=== PATIENT | male | born 1955 | race African-American/Black ===

== ENCOUNTER 2018-01-30 08:43 | Inpatient (IN) | payer OTHER ==
[~2018-01-30] VITALS: Ht 175.3 cm; Wt 99.5 kg
[2018-01-30 09:18] LABS: BASOPHILS % (AUTO) 0.3 % (0-1); EOSINOPHILS # (AUTO) 0.1 X10'3 (0-0.9); EOSINOPHILS % (AUTO) 0.4 % (0-6); HEMATOCRIT 37.2 % (42.0-52.0); HEMOGLOBIN 12.4 g/dl (14.0-17.9); LYMPHOCYTES # (AUTO) 1.9 X10'3 (1.1-4.8); LYMPHOCYTES % (AUTO) 12.6 % (21-51); MEAN CORPUSCULAR HEMOGLOBIN 29.6 PG (27.0-31.0); MEAN CORPUSCULAR HGB CONC 33.4 % (33.0-36.5); MEAN CORPUSCULAR VOLUME 88.6 FL (78-98); MEAN PLATELET VOLUME 7.1 FL (7.4-10.4); MONOCYTES # (AUTO) 0.8 X10'3 (0-0.9); MONOCYTES % (AUTO) 5.6 % (2-12); NEUTROPHILS % (AUTO) 81.1 % (42-75); PLATELET COUNT 224 X10'3 (140-440); RED CELL DISTRIBUTION WIDTH 13.1 % (11.5-14.5); WHITE BLOOD COUNT 14.8 X10'3 (4.5-11.0)
[2018-01-30] MEDS ORDERED: ondansetron/PF 4mg/2ml inj IV ONE (09:20)
[2018-01-30 09:35] LABS: ALANINE AMINOTRANSFERASE 38 U/L (12-78); ALBUMIN 3.5 G/DL (3.4-5.0); ALBUMIN/GLOBULIN RATIO 0.8 (1.1-1.5); ALKALINE PHOSPHATASE 81 IU/L (46-116); ANION GAP 8 (8-16); ASPARTATE AMINO TRANSFERASE 25 U/L (10-37); BILIRUBIN,TOTAL 0.5 MG/DL (0.1-1.0); BLOOD UREA NITROGEN 11 MG/DL (7-18); BUN/CREATININE RATIO 6.3 (5.4-32.0); CALCIUM 8.9 MG/DL (8.5-10.1); CHLORIDE 104 MMOL/L (99-107); CREATININE 1.76 MG/DL (0.60-1.10); GLUCOSE 181 MG/DL (70-104); POTASSIUM 3.8 MMOL/L (3.5-5.1); SODIUM 137 MMOL/L (135-145); TOTAL CARBON DIOXIDE 24.7 MMOL/L (24-32); TOTAL PROTEIN 7.7 G/DL (6.4-8.2); eGFR 40 ML/MIN
[2018-01-30] MEDS ORDERED: aspirin 325mg tablet PO ONE (09:40)
[2018-01-30 09:46] LABS: D-DIMER 15.44 MG/L FEU (0-0.50); PARTIAL THROMBOPLASTIN TIME 23 SECONDS (22-32); PROTHROMBIN TIME 10.7 SECONDS (9.0-12.0)
[2018-01-30] MEDS ORDERED: sodium bicarbonate (8.4%) 1 mEq/ml syringe IV ONE ×2 (09:55)
[2018-01-30] MEDS ORDERED: normal saline 1000ML IV soln IVB ONE (09:55)
[2018-01-30] MEDS ORDERED: iohexol 350MG/ML 100ml bottle IV ONE (10:29)
[2018-01-30] MEDS ORDERED: enoxaparin 100mg/ml syringe SQ ONE (10:40)
[2018-01-30 12:04] LABS: CLARITY,URINE Clear (Clear); COLOR,URINE Yellow (Yellow); GLUCOSE, URINE 100 mg/dl (Neg); KETONES,URINE Negative (Neg); LEUKOCYTE ESTERASE ,URINE Negative (Neg); NITRITES, URINE Negative (Neg); OCCULT BLOOD,URINE Negative (Neg); PROTEIN,URINE Negative (Neg); UROBILINOGEN,URINE 0.2 E.U/dL (0.2-1.0)
[2018-01-30 12:11] LABS: HEMATOCRIT 36.8 % (42.0-52.0); HEMOGLOBIN 12.3 g/dl (14.0-17.9); MEAN CORPUSCULAR HEMOGLOBIN 29.7 PG (27.0-31.0); MEAN CORPUSCULAR HGB CONC 33.5 % (33.0-36.5); MEAN CORPUSCULAR VOLUME 88.8 FL (78-98); MEAN PLATELET VOLUME 7.6 FL (7.4-10.4); PLATELET COUNT 197 X10'3 (140-440); RED BLOOD COUNT 4.14 X10'6 (4.70-6.10); RED CELL DISTRIBUTION WIDTH 13.3 % (11.5-14.5); WHITE BLOOD COUNT 14.5 X10'3 (4.5-11.0)
[2018-01-30 12:19] LABS: UA COLLECTION TYPE CLN CATCH MIDSTREAM
[2018-01-30 12:38] LABS: BLOOD UREA NITROGEN 10 MG/DL (7-18); CREATININE 1.47 MG/DL (0.60-1.10); eGFR 49 ML/MIN
[2018-01-30 13:00] LABS: ABG BASE EXCESS -1.4 mmol/L (-2.0-3.0); ABG HCO3 22.9 mmol/L (22.0-26.0); ABG OXYGEN SATURATION 89.9 % (95-98); ABG PCO2 (T) 37.1 mmHg (35.0-48.0); ABG PH (T) 7.408 (7.350-7.450); ABG PO2 (T) 56.1 mmHg (83-108); ALLEN'S TEST Positive; FCOHb 0.6 % (0.5-1.5); FLOW 5 L/min; FMetHb 0.1 % (0.3-1.12); FO2Hb 89.3 % (94-100)
[2018-01-30] MEDS ORDERED: magnesium hydroxide 30ml (MOM) UD suspension PO PRN (13:10)
[2018-01-30] MEDS ORDERED: acetaminophen 650mg rectal suppository RC PRN (13:10)
[2018-01-30] MEDS ORDERED: diphenhydrAMINE 25mg capsule PO PRN (13:10)
[2018-01-30] MEDS ORDERED: acetaminophen 325mg tablet PO PRN ×2 (13:10)
[2018-01-30] MEDS ORDERED: ondansetron/PF 4mg/2ml inj IV PRN (13:10)
[2018-01-30] MEDS ORDERED: mag hydrox/Alum hydrox/simeth 30ml oral suspension PO PRN (13:10)
[2018-01-30] MEDS ORDERED: HYDROcodone/acetaminophen 10/325mg tab PO PRN (13:10)
[2018-01-30] MEDS ORDERED: diphenhydrAMINE 50 mg/ml inj IV PRN (13:10)
[2018-01-30] MEDS ORDERED: metoclopramide 5 mg/ml inj IV PRN (13:10)
[2018-01-30] MEDS ORDERED: HYDROcodone/acetaminophen 5mg/325mg tablet PO PRN (13:10)
[2018-01-30] MEDS ORDERED: morphine 4 MG/ML inj SYRINge IV PRN ×2 (13:10)
[2018-01-30] MEDS ORDERED: bisacodyl 10mg suppository rectal RC PRN (13:10)
[2018-01-30] MEDS ORDERED: HYDROmorphone 1 mg/ml syringe IV PRN ×2 (13:10)
[2018-01-30] MEDS: normal saline 1000ml 1,000 ML IV SCH ×2 (13:32→21:52)
[2018-01-30] MEDS ORDERED: heparin 10,000 units/1 ML INJ IV PRN (13:35)
[2018-01-30 13:47] LABS: CREATINE KINASE 187 U/L (39-308); LIPASE 77 U/L (73-393)
[2018-01-30] MEDS ORDERED: heparin 10,000 units/1 ML INJ IV ONE ×3 (14:00→14:10)
[2018-01-30] MEDS ORDERED: heparin 10,000 units/1 ML INJ IV SCH (14:00)
[2018-01-30 15:22] LABS: URINE AMPHETAMINE SCREEN NEGATIVE (Neg); URINE BARBITUATE SCREEN NEGATIVE (Neg); URINE BENZODIAZEPINES SCREEN NEGATIVE (Neg); URINE CANNABINOID SCREEN NEGATIVE (Neg); URINE COCAINE SCREEN NEGATIVE (Neg); URINE METHADONE SCREEN NEGATIVE (Neg); URINE OPIATE SCREEN NEGATIVE (Neg); URINE PHENCYCLIDINE SCREEN NEGATIVE (Neg)
[2018-01-30 16:31] LABS: MAGNESIUM 1.8 MG/DL (1.5-2.4); PHOSPHORUS 2.3 MG/DL (2.3-4.5)
[2018-01-30 16:38] LABS: HEMOGLOBIN A1C 5.6 % (4.5-6.2)
[2018-01-30 17:45] VITALS: BP 139/87
[2018-01-30 19:00] VITALS: BP 138/91
[2018-01-30] MEDS ORDERED: NO HOME MEDS (19:08)
[2018-01-30] MEDS: docusate sod 100mg capsule PO SCH (20:00)
[2018-01-30] MEDS ORDERED: temazepam 15mg capsule PO PRN (21:00)
[2018-01-30 21:33] LABS: INR 1.1 INR; PARTIAL THROMBOPLASTIN TIME 65 SECONDS (22-32); PROTHROMBIN TIME 11.2 SECONDS (9.0-12.0)
[2018-01-30 23:31] VITALS: BP 139/90
[2018-01-31] MEDS ORDERED: heparin 10,000 units/1 ML INJ IV ONE (00:05)
[2018-01-31 06:53] LABS: BASOPHILS % (AUTO) 0.3 % (0-1); EOSINOPHILS # (AUTO) 0.2 X10'3 (0-0.9); EOSINOPHILS % (AUTO) 1.8 % (0-6); HEMATOCRIT 33.4 % (42.0-52.0); LYMPHOCYTES # (AUTO) 1.7 X10'3 (1.1-4.8); MEAN CORPUSCULAR HEMOGLOBIN 29.3 PG (27.0-31.0); MEAN CORPUSCULAR VOLUME 88.7 FL (78-98); MEAN PLATELET VOLUME 7.5 FL (7.4-10.4); MONOCYTES # (AUTO) 0.9 X10'3 (0-0.9); NEUTROPHILS # (AUTO) 6.6 X10'3 (1.8-7.7); NEUTROPHILS % (AUTO) 69.9 % (42-75); PLATELET COUNT 207 X10'3 (140-440); RED BLOOD COUNT 3.77 X10'6 (4.70-6.10); RED CELL DISTRIBUTION WIDTH 13.4 % (11.5-14.5); WHITE BLOOD COUNT 9.5 X10'3 (4.5-11.0)
[2018-01-31 07:30] LABS: ALANINE AMINOTRANSFERASE 34 U/L (12-78); ALBUMIN 2.9 G/DL (3.4-5.0); ALBUMIN/GLOBULIN RATIO 0.8 (1.1-1.5); ALKALINE PHOSPHATASE 64 IU/L (46-116); ANION GAP 6 (8-16); ASPARTATE AMINO TRANSFERASE 26 U/L (10-37); BILIRUBIN,TOTAL 0.6 MG/DL (0.1-1.0); BLOOD UREA NITROGEN 9 MG/DL (7-18); BUN/CREATININE RATIO 6.1 (5.4-32.0); CALCIUM 8.5 MG/DL (8.5-10.1); CHLORIDE 109 MMOL/L (99-107); CHOLESTEROL 194 MG/DL (0-200); CREATININE 1.47 MG/DL (0.60-1.10); GLUCOSE 110 MG/DL (70-104); HDL CHOLESTEROL 48 MG/DL (35-60); LDL CHOLESTEROL 128 MG/DL (50-100); SODIUM 141 MMOL/L (135-145); TOTAL CARBON DIOXIDE 25.7 MMOL/L (24-32); TOTAL PROTEIN 6.6 G/DL (6.4-8.2); TRIGLYCERIDES 52 MG/DL (20-135); eGFR 59 ML/MIN
[2018-01-31 07:37] VITALS: BP 127/86
[2018-01-31] MEDS: docusate sod 100mg capsule PO SCH ×2 (08:00→21:06)
[2018-01-31 11:00] VITALS: BP 131/82
[2018-01-31] MEDS: normal saline 1000ml 1,000 ML IV SCH ×2 (13:33→19:08)
[2018-01-31 15:00] VITALS: BP 125/78
[2018-01-31 19:00] VITALS: BP 152/85
[2018-01-31 23:00] VITALS: BP 140/88
[2018-02-01 03:14] VITALS: BP 141/81
[2018-02-01] MEDS: normal saline 1000ml 1,000 ML IV SCH (05:07)
[2018-02-01 05:29] LABS: BASOPHILS % (AUTO) 0.1 % (0-1); EOSINOPHILS # (AUTO) 0.2 X10'3 (0-0.9); EOSINOPHILS % (AUTO) 2.3 % (0-6); HEMATOCRIT 31.5 % (42.0-52.0); HEMOGLOBIN 10.4 g/dl (14.0-17.9); LYMPHOCYTES % (AUTO) 19.2 % (21-51); MEAN CORPUSCULAR HEMOGLOBIN 29.2 PG (27.0-31.0); MEAN CORPUSCULAR VOLUME 88.4 FL (78-98); MEAN PLATELET VOLUME 7.7 FL (7.4-10.4); MONOCYTES # (AUTO) 1.2 X10'3 (0-0.9); MONOCYTES % (AUTO) 11.2 % (2-12); NEUTROPHILS # (AUTO) 6.9 X10'3 (1.8-7.7); NEUTROPHILS % (AUTO) 67.2 % (42-75); PLATELET COUNT 188 X10'3 (140-440); RED BLOOD COUNT 3.56 X10'6 (4.70-6.10); RED CELL DISTRIBUTION WIDTH 13.5 % (11.5-14.5); WHITE BLOOD COUNT 10.3 X10'3 (4.5-11.0)
[2018-02-01 05:53] LABS: ALANINE AMINOTRANSFERASE 31 U/L (12-78); ALBUMIN 2.8 G/DL (3.4-5.0); ALBUMIN/GLOBULIN RATIO 0.7 (1.1-1.5); ALKALINE PHOSPHATASE 65 IU/L (46-116); ANION GAP 7 (8-16); ASPARTATE AMINO TRANSFERASE 25 U/L (10-37); BILIRUBIN,TOTAL 0.4 MG/DL (0.1-1.0); BLOOD UREA NITROGEN 7 MG/DL (7-18); BUN/CREATININE RATIO 5.4 (5.4-32.0); CHLORIDE 106 MMOL/L (99-107); CREATININE 1.29 MG/DL (0.60-1.10); GLUCOSE 105 MG/DL (70-104); POTASSIUM 3.8 MMOL/L (3.5-5.1); SODIUM 140 MMOL/L (135-145); TOTAL CARBON DIOXIDE 26.9 MMOL/L (24-32); TOTAL PROTEIN 7.1 G/DL (6.4-8.2); eGFR 69 ML/MIN
[2018-02-01 07:00] VITALS: BP 129/86
[2018-02-01 07:25] LABS: % IRON SATURATION 12 % (11-46); IRON 28 UG/DL (53-167); TOTAL IRON BINDING CAPACITY 234 UG/DL (259-388)
[2018-02-01] MEDS: docusate sod 100mg capsule PO SCH (07:50)
[2018-02-01 11:00] VITALS: BP 114/78
[2018-02-01] MEDS ORDERED: ATOR10TA PO (11:16)
[2018-02-01] MEDS ORDERED: FERR140T PO (11:16)
[2018-02-01] MEDS ORDERED: APIX5TAB3 PO (11:16)
[2018-02-01] MEDS ORDERED: apixaban 5mg tablet PO SCH (20:00)
[2018-02-01] MEDS ORDERED: ferrous sulfate ER tablet 140 MG TABLET.ER PO SCH (20:00)
== END 2018-02-01 14:10 | disposition home or self-care (01) | DRG 280 ==
LOC: ER 08:44 → ED HOLD 13:08 → PCU 3S 17:25
PROVIDERS: ADMIT Family Medicine; ATTEND Internal Medicine
DX: I82.432 Acute embolism and thrombosis of left popliteal vein (principal); I21.A1 Myocardial infarction type 2; I26.99 Other pulmonary embolism without acute cor pulmonale; J96.01 Acute respiratory failure with hypoxia; N17.9 Acute kidney failure, unspecified; E66.9 Obesity, unspecified; E86.0 Dehydration; K31.9 Disease of stomach and duodenum, unspecified; E78.00 Pure hypercholesterolemia, unspecified; D64.9 Anemia, unspecified; Z79.01 Long term (current) use of anticoagulants; Z79.899 Other long term (current) drug therapy; Z68.32 Body mass index [BMI] 32.0-32.9, adult
CPT/HCPCS: 36415; 36600; 71045; 71275; 80053; 80061; 80305; 81003; 81479; 82550; 82565; 82607; 82746; 82803; 83036; 83540; 83550; 83605; 83690; 83735; 83880; 83891; 83894; 83898; 84100; 84443; 84484; 84520; 85018; 85025; 85027; 85300; 85301; 85303; 85305; 85306; 85379; 85610; 85651; 85730; 86140; 86147; 87040; 93005; 93306; 93970; 94760; 96361; 96372; 96374; 96375; 99291; J1644; J1650; J2405; J7030; Q9967

== ENCOUNTER 2023-02-18 20:22 | Emergency (ER) | payer OTHER, MEDICARE ==
[~2023-02-18] VITALS: Ht 177.8 cm; Wt 101.4 kg
[~2023-02-18 20:22] MED LIST: APIX5TAB3 PO; ATOR10TA PO; FERR140T2 PO; NO HOME MEDS
[2023-02-18 20:58] VITALS: TEMP 98.5
[2023-02-18 21:01] LABS: ALANINE AMINOTRANSFERASE 25 U/L (12-78); ALBUMIN 3.7 G/DL (3.4-5.0); ALBUMIN/GLOBULIN RATIO 0.9 (1.1-1.5); ALKALINE PHOSPHATASE 59 IU/L (46-116); ANION GAP 9 (8-16); ASPARTATE AMINO TRANSFERASE 18 U/L (10-37); BILIRUBIN,TOTAL 0.4 MG/DL (0.1-1.0); BLOOD UREA NITROGEN 19 MG/DL (7-18); CALCIUM 9.4 MG/DL (8.5-10.1); CHLORIDE 103 MMOL/L (99-107); CREATININE 1.58 MG/DL (0.60-1.10); GLUCOSE 98 MG/DL (70-104); POTASSIUM 3.9 MMOL/L (3.5-5.1); SODIUM 138 MMOL/L (135-145); TOTAL CARBON DIOXIDE 26.2 MMOL/L (24-32); TOTAL PROTEIN 7.9 G/DL (6.4-8.2); eGFR 53 ML/MIN
[2023-02-18 21:07] LABS: BASOPHILS # (AUTO) 0.1 X10'3 (0-0.2); BASOPHILS % (AUTO) 0.7 % (0-1); EOSINOPHILS # (AUTO) 0.1 X10'3 (0-0.9); EOSINOPHILS % (AUTO) 1.7 % (0-6); HEMATOCRIT 40.3 % (42.0-52.0); HEMOGLOBIN 13.4 g/dl (14.0-17.9); LYMPHOCYTES # (AUTO) 2.5 X10'3 (1.1-4.8); MEAN CORPUSCULAR HEMOGLOBIN 30.5 PG (27.0-31.0); MEAN CORPUSCULAR HGB CONC 33.2 g/dL (33.0-36.5); MEAN CORPUSCULAR VOLUME 91.8 FL (78-98); MEAN PLATELET VOLUME 8.1 FL (7.4-10.4); MONOCYTES # (AUTO) 0.8 X10'3 (0-0.9); MONOCYTES % (AUTO) 9.6 % (2-12); PLATELET COUNT 280 X10'3 (140-440); RED CELL DISTRIBUTION WIDTH 12.6 % (11.5-14.5); WHITE BLOOD COUNT 8.5 X10'3 (4.5-11.0)
[2023-02-18 21:20] LABS: PRO BRAIN NATRIURETIC PEPTIDE < 30 PG/ML (0-125)
[2023-02-19] MEDS ORDERED: normal saline 1000ml 1,000 ML IV ONE (00:05)
[2023-02-19] MEDS ORDERED: iohexol 350MG/ML 100ml bottle IV ONE (00:44)
[2023-02-19 02:00] VITALS: BP 150/95; PULSE 65; RESP 18; O2SAT 95
== END 2023-02-19 03:32 | disposition home or self-care (01) ==
LOC: ER 20:23
DX: R07.9 Chest pain, unspecified (principal); R06.02 Shortness of breath; E78.00 Pure hypercholesterolemia, unspecified
CPT/HCPCS: 36415; 71275; 80053; 83880; 84484; 85025; 93005; 96360; 99285; J3490; J7030; Q9967